=== PATIENT | female | born 1975 | race Two or more races ===

== ENCOUNTER 2023-12-17 17:15 | Emergency (ER) | payer OTHER ==
[~2023-12-17] VITALS: Ht 160 cm; Wt 90.4 kg
[2023-12-17 18:30] VITALS: BP 153/87; PULSE 111; RESP 16; TEMP 99; O2SAT 100
[2023-12-17] MEDS ORDERED: ZOFR4T PO (19:06)
[2023-12-17] MEDS: KETOROLAC TROMETH 60MG/2ML VIAL IM ONE (19:23)
== END 2023-12-17 19:30 | disposition home or self-care (01) ==
LOC: ER 17:15
DX: S60.212A Contusion of left wrist, initial encounter (principal); S60.011A Contusion of right thumb without damage to nail, initial encounter; M25.532 Pain in left wrist; R51.9 Headache, unspecified; F41.9 Anxiety disorder, unspecified; V89.2XXA Person injured in unspecified motor-vehicle accident, traffic, initial encounter; Y93.89 Activity, other specified; Y92.89 Other specified places as the place of occurrence of the external cause; Y99.8 Other external cause status
CPT/HCPCS: 96372; 99283; J1885